=== PATIENT | female | born 1950 | race Caucasian/White ===

== ENCOUNTER 2021-06-20 10:43 | Outpatient (CLI) | payer MEDICARE | END 2021-06-20 10:44 | disposition home or self-care (01) | LOC: CSHLAB 10:43 | PROVIDERS: ATTEND Obstetrics & Gynecology | DX: Z01.818 Encounter for other preprocedural examination (principal); Z20.822 Contact with and (suspected) exposure to COVID-19; N84.0 Polyp of corpus uteri | CPT/HCPCS: 85027; 86850; 86900; 86901; 93005; 93010; U0003; U0005 ==

== ENCOUNTER 2021-06-23 06:44 | Day surgery (SDC) | payer MEDICARE ==
[2021-06-15 13:34] VITALS: BMI 32.8
[2021-06-20 12:11] LABS: Hemoglobin 12.9 g/dL (12.0-15.5); Mean Corpuscular HGB CONC 30.9 g/dL (32.0-36.0); Mean Corpuscular Hemoglobin 27.8 pg (27.0-33.0); Mean Corpuscular Volume 89.9 fl (81.6-98.3); Platelet Count 221 10x3/uL (150-450); Red Blood Cell (RBC) Count 4.64 10x6/uL (3.90-5.03); White Blood Cell (WBC) Count 6.9 10x3/uL (3.5-10.5)
[2021-06-20 20:45] LABS: SARS-CoV-2 PCR by NAA Not Detected (NotDetected)
[2021-06-23] MEDS ORDERED: Lidocaine 1% MPF 2 ML VIAL ONE (08:04)
[2021-06-23] MEDS ORDERED: PROPOFOL 20 ML ONE (08:30)
[2021-06-23] MEDS ORDERED: Fentanyl 100 MCG/2 ML VIAL ONE (08:31)
[2021-06-23] MEDS ORDERED: Ondansetron PF 4 MG/2 ML Vial ONE (08:32)
[2021-06-23] MEDS ORDERED: Lidocaine 1% PF 5 ML VIAL ONE (08:32)
[2021-06-23] MEDS ORDERED: Dexamethasone 4 mg/ml Vial ONE (08:32)
[2021-06-23] MEDS ORDERED: ceFAZolin 2 GM/Dextrose 50 ML IVPB ONE (08:47)
[2021-06-23] MEDS ORDERED: Rocuronium Bromide 10 MG/ML (10ML VIAL) ONE (09:03)
[2021-06-23] MEDS ORDERED: Glycopyrrolate 0.2 MG/ML 5 ML SYRINGE ONE (09:29)
[2021-06-23] MEDS ORDERED: SUGAMMADEX SODIUM 200 MG/2 ML VIAL ONE (09:37)
== END 2021-06-23 10:35 | disposition home or self-care (01) ==
LOC: CSHSDC 06:44
PROVIDERS: ATTEND Obstetrics & Gynecology
PROC: 0UB98ZX Excision of Uterus, Via Natural or Artificial Opening Endoscopic, Diagnostic (ICD-10-PCS; principal; 2021-06-23)
DX: N84.0 Polyp of corpus uteri (principal); E78.5 Hyperlipidemia, unspecified; I10 Essential (primary) hypertension; Z79.82 Long term (current) use of aspirin; Z79.899 Other long term (current) drug therapy; Z20.822 Contact with and (suspected) exposure to COVID-19
CPT/HCPCS: 58558; 85027; 86850; 86900; 86901; U0003; U0005; 36415; 88305; J0690; J1100; J2405; J2704; J3010